=== PATIENT | male | born 1975 | race Caucasian/White ===

== ENCOUNTER 2018-05-29 15:43 | Observation (INO) | payer MEDICAID, SELFPAY ==
[2018-05-29] VITALS (12 sets, daily range): BP systolic 129–253; BP diastolic 62–175; PULSE 73–110; RESP 16–24; TEMP 36.6–37.4; O2SAT 96–99; BMI 37.0; BMI 38.2; BMI 38.3
--- NOTE | 2018-05-29 15:58 | EKG12_ITS ---
Test Reason : SYNCOPE Blood Pressure : / mmHG Vent. Rate : 108 BPM Atrial Rate : 108 BPM P-R Int : 164 ms QRS Dur : 100 ms QT Int : 362 ms P-R-T Axes : 042 048 144 degrees QTc Int : 485 ms Sinus tachycardia Left ventricular hypertrophy with repolarization abnormality Abnormal ECG Confirmed by GEORGES JAMESON, REBECCA ([id number]), editor magazine JOSE SULTANA ([id number]) on 05/31/2018 12:48:17 PM Referred By: AMARIS/ROLA Confirmed By:REBECCA SU MD
--- NOTE | 2018-05-29 15:58 | CT_ITS ---
STUDY: CT BRAIN WITHOUT CONTRAST REASON FOR EXAM: Male, 42 years old. Trauma. Head injury RADIATION DOSAGE (If Supplied By Facility): CTDIvol = ( 44.99 ) mGy, DLP = ( 880.47 ) mGycm TECHNIQUE: Transaxial CT imaging of the brain was performed without administration of intravenous contrast material. Individualized dose optimization techniques were used for this CT. COMPARISON: 09/28/2017 FINDINGS: Normal soft tissue structures. Normal calvarium. Normal size ventricles and extra-axial spaces for the patient's age. Normal white matter tracts of the cerebral hemispheres. Normal basal ganglia and thalami. Normal brainstem. Normal cerebellum. Linear area of well-defined hypodensity in the right parieto-occipital lobe compatible prior ischemia. There is no intracranial hemorrhage. There are no findings of an acute ischemic infarction. Normal visualized paranasal sinuses. CT/Brain/Head without Contrast IMPRESSION: No acute intracranial pathology. Remainder as above Electronically Signed: Yohan Washington DO at 19:37 EDT Tel , Service support ,
--- NOTE | 2018-05-29 16:09 | ED.VISSUMM ---
- ER Visit Summary Date of Service: 05/29/18 Chief Complaint: Syncopal episode History of Present Illness: The patient is a 42 M who has multiple medical problems presents after syncopal episode. He did have a prodrome. 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 This occurred while re-presents in a car. He states he got lightheaded and slightly sick to stomach and passed out. He states he has not been able take any of his blood pressure meds for the past 48 hours because of vomiting. He took his last Xarelto pill approximate 24 hours ago. He is on Xarelto for prior history of PE. Patient complains of bilateral headache. He complains of blurred vision without double vision or loss of vision. Denies ringing in his ears or decreased hearing. He denies any facial pain. He denies neck pain. He denies any chest pain. He complains of mid central back pain after fall. He has history of chronic low back pain. He denies any radicular pain. He denies any paresthesia, anesthesia motors upper or lower extremity presently the time of the fall. He does report nausea and vomiting. He denies hematemesis, melena hematochezia. Past medical history coronary disease status post bypass surgery, hypertension, pulmonary embolus and chronic low back pain. Physical Examination: Initial blood pressure 246/160. Repeat was 268/168. He is alert oriented ?3. Motor spiral 5. Sensations intact. DTRs symmetric no clonus or Babinski. Cranial 2 through 12 are intact. Head is atraumatic normocephalic. Pupils equal round reactive. Extra muscle intact. There is no CSF otorrhea Shalom. Trachea midline. There is no cervical spine tenderness. He has full active range of motion. Heart is regular without murmur, gallop or rub. He has a well-healed mid sternotomy scar noted. Lungs are clear to auscultation. Abdomen is soft nontender. There is no asymmetry, swelling, discoloration, leg vein distention, palpable cords or tenderness along the distribution of the deep venous system. Test Results: EKG reveals sinus tachycardia rate of 108 with LVH with repolarization abnormality. This is unchanged from September 28, 2017. CBC is remarkable for an MCV of 70 otherwise unremarkable. Emergency Department Course and Treatment: Patient was medicated with Zofran and Dilaudid for his nausea and back pain. Since he has taken a dose of Xarelto with the last 24 hours and has history of head trauma will obtain CT of the head. Because he complains of chest pain a chest x-ray was obtained which will evaluate his mediastinum. EKG and appropriate blood work. He is on multiple antihypertensive meds. These meds include clonidine and labetalol. He received a dose of clonidine and was started on labetalol drip. Patient has not gone for radiologic imaging i.e. chest x-ray and CT of the head. Blood results are still pending. Patient's history and physical findings were relayed to Dr. Crow who will make disposition once all diagnostic and laboratory tests have returned. Treatment Plan: Patient will require admission to the ICU. Disposition: Admit ICU Impression: 1. Hypertensive urgency versus emergency 2. Syncopal episode 3. Headache 4. Closed head injury 5. High risk medication, Xarelto 6. History of coronary disease 7. Chest pain unknown etiology This note was generated with [employer] dictation software. It may contain incorrect words, spelling, and punctuation that were not noted in review of the chart prior to signing ED Disposition - Plan for ED Patient: Chief Complaint: Syncope Referrals: Care Physician,No Primary [Primary Care Provider] -
[2018-05-29 16:25] LABS: Absolute Lymphocyte Count 1.49 X10^3/ul (0.83-4.51); Absolute Neutrophil Count 5.9 X10^3/uL (2.0-7.7); Basophil# 0.05 X10^3/uL; Basophil% 0.6 % (0-1); Eosinophil# 0.34 X10^3/uL; Hematocrit 45.5 % (40-54); Hemoglobin 13.7 g/dl (13.0-16.5); Lymphocyte # 1.49 X10^3/ul (4.0); Lymphocyte % 17.6 % (19-41); Mean Corp Hgb Conc 30.1 g/gl (32-36); Mean Corpuscular Hgb 21.1 pg (27.0-32.0); Mean Corpuscular Volume 70.1 fL (80-94); Mean Platelet Vol. 9.4 fl (6.2-12.0); Monocyte# 0.67 X10^3/uL; Monocyte% 7.9 % (0-10); Neutrophil # 5.91 X10^3/uL (2.7-7.7); Neutrophil % 69.7 % (47-70); Platelet Count 172 K/mm3 (150-450); RBC Distribution Width CV 17.2 % (11.6-14.6); Red Blood Count 6.49 M/mm3 (4.6-6.2); White Blood Count 8.5 K/mm3 (4.4-11.0)
[2018-05-29 16:27] LABS: Differential Indicated SCAN CRITERIA MET; POSITIVE COUNT NO; POSITIVE DIFFERENTIAL NO; POSITIVE MORPHOLOGY YES
[2018-05-29 16:33] LABS: International Normalized Ratio 0.9; Prothrombin Time (Protime)PT. 12.6 SECONDS (11.7-14.9)
[2018-05-29] MEDS: 0.9% Normal Saline 1,000 ML 150 ML IV (16:33)
[2018-05-29] MEDS: HYDROmorphone 1 MG/ML Syringe IV (16:33)
[2018-05-29 16:36] LABS: Anion Gap 11 (5-15); BUN 11 mg/dL (7-18); BUN/Creat Ratio 8.1 RATIO (10-20); Calcium,Total 9.2 mg/dL (8.5-10.1); Chloride 101 mmol/L (98-107); Creatinine, Serum 1.36 mg/dL (0.70-1.30); EST Glomerular Filtration Rate 62 mL/min (>60); Est Glom Filt Rate - Afr Amer 74 mL/min (>60); Estimated Creatinine Clearance 79.25 ml/min; Glucose 105 mg/dL (74-106); Potassium 3.3 mmol/L (3.5-5.1); Sodium Level 140 mmol/L (136-145)
[2018-05-29] MEDS: cloNIDine HCl 0.1 MG Tablet PO (16:45)
[2018-05-29] MEDS: Ondansetron 4 MG/2 ML Vial IV (16:46)
--- NOTE | 2018-05-29 16:55 | RAD_ITS ---
STUDY: X-RAY CHEST REASON FOR EXAM: Male, 42 years old. Shortness of breath and chest pain. TECHNIQUE: Single frontal view of the chest. COMPARISON: September 28, 2017 FINDINGS: There is stable low volume inspiration. There is no demonstrated pleural abnormality. There is cardiomegaly with sternotomy wires unchanged. Normal mediastinum and abram. Normal visualized pulmonary arteries. Normal visualized aortic arch and descending thoracic aorta. Normal visualized thoracic spine. Normal visualized ribs, clavicles, and shoulders. There is no demonstrated abnormality of the visualized soft tissue structures of the upper abdomen. RAD/Chest 1 View (Portable) IMPRESSION: Stable cardiomegaly with low volume inspiration. No new or acute pathology. Electronically Signed: Liam Lara MD at 17:31 EDT , Service support ,
--- NOTE | 2018-05-29 18:44 | ED.RN ---
PT WENT DOWN TO CT, PT STATED HE COULD NOT LIE FLAT FOR CT OF THE HEAD DUE TO HIS BACK PAIN, PT REFUSED CT AND WAS BROUGHT BACK TO ROOM
[2018-05-29] MEDS: HYDROmorphone 0.5 MG/0.5 ML SYRINGE IV ×2 (18:55→22:50)
--- NOTE | 2018-05-29 19:00 | PCM.HP.STD ---
Problem List (1) Syncope Status: Acute (2) Malignant hypertension Status: Acute (3) Back pain Status: Acute History of Present Illness Date of Admission: 05/29/18 Chief Complaint: syncope The patient is a 42 year old M who for the past few days his nausea and vomiting and not able to eat or drink much of anything. 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 Patient fell backwards hitting his head. Subsequent patient having some paresthesias of the top of the scalp. Denies any other paresthesias elsewhere. Does have significant back pain as well and did require several doses of hydromorphone in the emergency room. Patient was also in malignant hypertension with blood pressure as high as 253/147. Patient received 1 dose of clonidine and then was started on a labetalol drip. Patient states that he is feeling better at this time. Patient was unable to have a CAT scan of his head before my arrival because he was not medicated in the for his back pain. [] Past Medical History Medical History: Medical History (Last Updated 05/29/18 @ 19:05 by Yamil Friedman DO) CAD (coronary artery disease) I25.10 Chronic pain G89.29 Kidney stone N20.0 Pulmonary embolism I26.99 Stented coronary artery Z95.5 Tonsil stone J35.8 HTN (hypertension) I10 Allergies acetaminophen [From [place]] Allergy (Verified 05/29/18 15:46) Hives hydrocodone [From [place]] Allergy (Verified 05/29/18 15:46) Hives ibuprofen Allergy (Verified 05/29/18 15:46) Hives diphenhydramine [From Benadryl] Adverse Reaction (Verified 05/29/18 15:46) Upset Stomach fentanyl Adverse Reaction (Verified 05/29/18 15:46) Chest tightness hydralazine Adverse Reaction (Verified 05/29/18 15:46) Chest tightness ketorolac [From Toradol] Adverse Reaction (Verified 05/29/18 15:46) Upset Stomach lisinopril Adverse Reaction (Verified 05/29/18 15:46) Other metoclopramide [From Reglan] Adverse Reaction (Verified 05/29/18 16:05) Upset Stomach morphine Adverse Reaction (Verified 05/29/18 15:46) Other nitroglycerin [From Nitroglyn] Adverse Reaction (Verified 05/29/18 15:46) Other prochlorperazine [From Compazine] Adverse Reaction (Verified 05/29/18 15:46) Upset Stomach promethazine [From Phenergan] Adverse Reaction (Verified 05/29/18 15:46) Upset Stomach Home Medications: Ambulatory Orders Medication Instructions Recorded ALPRAZolam [Xanax] 1 mg PO TID 09/28/17 Aspirin [Aspirin, Baby] 81 mg PO DAILY@0800 09/28/17 Carvedilol [Coreg] 25 mg PO BID 09/28/17 HYDROmorphone tablet [Dilaudid] 2 mg PO Q4H PRN PRN 09/28/17 Labetalol [Trandate] 300 mg PO BID 09/28/17 Rivaroxaban [Xarelto] 20 mg PO DAILY 09/28/17 Albuterol Inhaler 1 puff INHALATION PRN 05/29/18 Catapres 0.5 mg PO DAILY 05/29/18 Surgical History: Surgical History (Last Updated 05/29/18 @ 19:04 by Yamil Friedman DO) Hx of CABG Z95.1 Smoking Status: Never smoker Tobacco Use: Non-smoker Alcohol: None Drugs: None - *Family History Maternal Family History: Family History (Last Updated 05/29/18 @ 19:04 by Yamil Friedman DO) Other Pulmonary embolism Review of Systems Constitutional: Reports: Anorexia. Denies: Chills, Fever Eyes: Reports: Blurred vision - when he turns his head. Denies: Cataracts, Double vision HEENT: Reports: - - tonsil stone. Denies: Head Aches, Sinus Congestion, Sinus Drainage Cardiovascular: Denies: Chest Pain, Chest Pressure, Edema Respiratory: Denies: Cough, Shortness of breath at rest, Sputum production Gastrointestinal: Reports: Abdominal Pain, Nausea, Vomiting Genitourinary: Reports: Dysuria. Denies: Frequency Musculoskeletal: Reports: Back Pain. Denies: Joint Pain, Joint Tenderness Skin: Denies: Dryness, Jaundice Neurological: Reports: Blurred vision, Tingling - scalp. Denies: Balance problems, Change in Speech, Slurred speech, Incoordination Psychiatric: Denies: Anxiety, Depression Hematologic/ Lymphatic: Reports: Hx of blood clot. Denies: Easy Bruising, Easy Bleeding Comment: All review of systems are negative except as mentioned in the history of present illness and the other review of systems. VTE Information - Inpt Only VTE Present on Admission: Yes Patient Problems: Active and Suspected Problems Syncope (Acute) Malignant hypertension (Acute) Back pain (Acute) - Physical Exam General: Alert, Cooperative, No apparent distress HEENT: Atraumatic, PERRLA, EOMI, Normocephalic Oral: Moist Mucosa, No Gingival or Mucosal Lesions/ Ulcerations Neck: No Nodes, Thyroid Normal Size and Texture Lungs: Clear to auscultation, Normal air movement, No rhonchi, No wheeze Cardiovascular: Regular rate, Regular Rhythm, Normal S1, Normal S2, No murmurs Abdomen: Bowel Sounds Present, Soft, Non Tender, Non-Distended, No Hepato-splenomegaly, Obese Extremities: No edema, No Calf Tenderness Skin: No rashes, No breakdown, - - No scalp laceration that I can appreciate Musculoskeletal: No Muscle Wasting, - - Patient with reproducible paraspinal tenderness throughout his back Lymphatic: No Cervical, Supraclavicular, or Inguinal Adenopathy, Cervical Adenopathy Neurological: Neuro grossly intact, Sensory exam intact to light touch and pain, Coordination normal Psych/Mental Status: Normal Affect, Appropriate Vital Signs Temp Pulse Resp BP Pulse Ox 37.2 C 77 20 H 152/128 H 98 05/29/18 15:50 05/29/18 18:45 05/29/18 18:45 05/29/18 18:45 05/29/18 18:45 Oxygen Delivery Method Room Air Weight: 123.831 kg Body Mass Index (BMI) 37.0 Laboratory Tests Past 24 Hrs 05/29/18 05/29/18 05/29/18 16:08 16:08 16:08 WBC 8.5 RBC 6.49 H Hgb 13.7 Hct 45.5 MCV 70.1 L MCH 21.1 L MCHC 30.1 L RDW 17.2 H RDW Differential 43.0 Plt Count 172 MPV 9.4 Immature Gran % (Auto) 0.200 Neut % (Auto) 69.7 Lymph % (Auto) 17.6 L [place] % (Auto) 7.9 Eos % (Auto) 4.0 Baso % (Auto) 0.6 Absolute Neuts (auto) 5.9 Absolute Lymphs (auto) 1.49 Total Counted Not Reportable Differential Comment PT 12.6 INR 0.9 APTT 28.0 Sodium 140 Potassium 3.3 L Chloride 101 Carbon Dioxide 28.0 Anion Gap 11 BUN 11 Creatinine 1.36 H Estim Creat Clear Calc 79.25 Est GFR (MDRD) Af Amer 74 Est GFR (MDRD) Non-Af 62 BUN/Creatinine Ratio 8.1 L Glucose 105 Calcium 9.2 Troponin I 0.017 Assessment/Plan All Active Problems Syncope (Acute) Malignant hypertension (Acute) Back pain (Acute) 1. Malignant hypertension Currently much improved but blood pressure still elevated. When I arrived in the room patient blood pressure cuff was grossly overinflated while he was taking his blood pressure. I remove the air from it and then his blood pressure was reading 144/90. So there may have been component of air with the blood pressure cuff being overinflated. I have discontinued the labetalol drip. Patient will continue with his home medications and I will have as needed labetalol for systolic blood pressure over 180 2. Syncope Feel that this is likely vasovagal given his intractable nausea vomiting and not eating. Patient showed me his urine sample and it appear to be very concentrated. A urinalysis was not sent from the ER but I have ordered that. Leg the patient had a vasovagal event due to his truncal nausea and vomiting and being dehydrated Patient will receive IV fluids Since patient hit his head patient will have a CAT scan in the emergency room. I have made the nurse aware in the emergency room as on the floor that she is not to go to the floor until his CAT scan is read as negative for bleed. Any bleed would preclude him from being admitted at this hospital and would require tertiary facility with neurosurgery involvement. I will order a CAT scan in the morning as well presuming CAT scan this evening will be negative just make sure he does not have any latent bleed with his head trauma, hypertension and Xarelto usage. 3. Back pain Neuro exam is nonfocal Reveals muscular in etiology and will start the patient on Flexeril as needed Patient has a high pain medication tolerance given his chronic Dilaudid usage. Patient will have as needed IV Dilaudid for breakthrough pain. 4. Venous thromboembolic disease Continue with Xarelto Stable 5. Coronary artery disease Stable 6. Disposition: If CAT scans are negative and patient is otherwise feeling better and is pressures better controlled patient should be able to be discharged on the 16. Patient will be brought in under observation status at this time. Code Visit OBSV E&M: 58334 Initial observation care L3
--- NOTE | 2018-05-29 19:11 | HP.PCM_ITS ---
Problem List (1) Syncope Status: Acute (2) Malignant hypertension Status: Acute (3) Back pain Status: Acute History of Present Illness Date of Admission: 05/29/18 Chief Complaint: syncope The patient is a 42 year old M who for the past few days his nausea and vomiting and not able to eat or drink much of anything. 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 Patient fell backwards hitting his head. Subsequent patient having some paresthesias of the top of the scalp. Denies any other paresthesias elsewhere. Does have significant back pain as well and did require several doses of hydromorphone in the emergency room. Patient was also in malignant hypertension with blood pressure as high as 253/147. Patient received 1 dose of clonidine and then was started on a labetalol drip. Patient states that he is feeling better at this time. Patient was unable to have a CAT scan of his head before my arrival because he was not medicated in the for his back pain. [] Past Medical History Medical History: Medical History (Last Updated 05/29/18 @ 19:05 by Yamil Friedman DO) CAD (coronary artery disease) I25.10 Chronic pain G89.29 Kidney stone N20.0 Pulmonary embolism I26.99 Stented coronary artery Z95.5 Tonsil stone J35.8 HTN (hypertension) I10 Allergies acetaminophen [From [place]] Allergy (Verified 05/29/18 15:46) Hives hydrocodone [From [place]] Allergy (Verified 05/29/18 15:46) Hives ibuprofen Allergy (Verified 05/29/18 15:46) Hives diphenhydramine [From Benadryl] Adverse Reaction (Verified 05/29/18 15:46) Upset Stomach fentanyl Adverse Reaction (Verified 05/29/18 15:46) Chest tightness hydralazine Adverse Reaction (Verified 05/29/18 15:46) Chest tightness ketorolac [From Toradol] Adverse Reaction (Verified 05/29/18 15:46) Upset Stomach lisinopril Adverse Reaction (Verified 05/29/18 15:46) Other metoclopramide [From Reglan] Adverse Reaction (Verified 05/29/18 16:05) Upset Stomach morphine Adverse Reaction (Verified 05/29/18 15:46) Other nitroglycerin [From Nitroglyn] Adverse Reaction (Verified 05/29/18 15:46) Other prochlorperazine [From Compazine] Adverse Reaction (Verified 05/29/18 15:46) Upset Stomach promethazine [From Phenergan] Adverse Reaction (Verified 05/29/18 15:46) Upset Stomach Home Medications: Ambulatory Orders Medication Instructions Recorded ALPRAZolam [Xanax] 1 mg PO TID 09/28/17 Aspirin [Aspirin, Baby] 81 mg PO DAILY@0800 09/28/17 Carvedilol [Coreg] 25 mg PO BID 09/28/17 HYDROmorphone tablet [Dilaudid] 2 mg PO Q4H PRN PRN 09/28/17 Labetalol [Trandate] 300 mg PO BID 09/28/17 Rivaroxaban [Xarelto] 20 mg PO DAILY 09/28/17 Albuterol Inhaler 1 puff INHALATION PRN 05/29/18 Catapres 0.5 mg PO DAILY 05/29/18 Surgical History: Surgical History (Last Updated 05/29/18 @ 19:04 by Yamil Friedman DO) Hx of CABG Z95.1 Smoking Status: Never smoker Tobacco Use: Non-smoker Alcohol: None Drugs: None - *Family History Maternal Family History: Family History (Last Updated 05/29/18 @ 19:04 by Yamil Friedman DO) Other Pulmonary embolism Review of Systems Constitutional: Reports: Anorexia. Denies: Chills, Fever Eyes: Reports: Blurred vision - when he turns his head. Denies: Cataracts, Double vision HEENT: Reports: - - tonsil stone. Denies: Head Aches, Sinus Congestion, Sinus Drainage Cardiovascular: Denies: Chest Pain, Chest Pressure, Edema Respiratory: Denies: Cough, Shortness of breath at rest, Sputum production Gastrointestinal: Reports: Abdominal Pain, Nausea, Vomiting Genitourinary: Reports: Dysuria. Denies: Frequency Musculoskeletal: Reports: Back Pain. Denies: Joint Pain, Joint Tenderness Skin: Denies: Dryness, Jaundice Neurological: Reports: Blurred vision, Tingling - scalp. Denies: Balance problems, Change in Speech, Slurred speech, Incoordination Psychiatric: Denies: Anxiety, Depression Hematologic/ Lymphatic: Reports: Hx of blood clot. Denies: Easy Bruising, Easy Bleeding Comment: All review of systems are negative except as mentioned in the history of present illness and the other review of systems. VTE Information - Inpt Only VTE Present on Admission: Yes Patient Problems: Active and Suspected Problems Syncope (Acute) Malignant hypertension (Acute) Back pain (Acute) - Physical Exam General: Alert, Cooperative, No apparent distress HEENT: Atraumatic, PERRLA, EOMI, Normocephalic Oral: Moist Mucosa, No Gingival or Mucosal Lesions/ Ulcerations Neck: No Nodes, Thyroid Normal Size and Texture Lungs: Clear to auscultation, Normal air movement, No rhonchi, No wheeze Cardiovascular: Regular rate, Regular Rhythm, Normal S1, Normal S2, No murmurs Abdomen: Bowel Sounds Present, Soft, Non Tender, Non-Distended, No Hepato- splenomegaly, Obese Extremities: No edema, No Calf Tenderness Skin: No rashes, No breakdown, - - No scalp laceration that I can appreciate Musculoskeletal: No Muscle Wasting, - - Patient with reproducible paraspinal tenderness throughout his back Lymphatic: No Cervical, Supraclavicular, or Inguinal Adenopathy, Cervical Adenopathy Neurological: Neuro grossly intact, Sensory exam intact to light touch and pain , Coordination normal Psych/Mental Status: Normal Affect, Appropriate Vital Signs Temp Pulse Resp BP Pulse Ox 37.2 C 77 20 H 152/128 H 98 05/29/18 15:50 05/29/18 18:45 05/29/18 18:45 05/29/18 18:45 05/29/18 18:45 Oxygen Delivery Method Room Air Weight: 123.831 kg Body Mass Index (BMI) 37.0 Laboratory Tests Past 24 Hrs 05/29/18 05/29/18 05/29/18 16:08 16:08 16:08 WBC 8.5 RBC 6.49 H Hgb 13.7 Hct 45.5 MCV 70.1 L MCH 21.1 L MCHC 30.1 L RDW 17.2 H RDW Differential 43.0 Plt Count 172 MPV 9.4 Immature Gran % (Auto) 0.200 Neut % (Auto) 69.7 Lymph % (Auto) 17.6 L [place] % (Auto) 7.9 Eos % (Auto) 4.0 Baso % (Auto) 0.6 Absolute Neuts (auto) 5.9 Absolute Lymphs (auto) 1.49 Total Counted Not Reportable Differential Comment PT 12.6 INR 0.9 APTT 28.0 Sodium 140 Potassium 3.3 L Chloride 101 Carbon Dioxide 28.0 Anion Gap 11 BUN 11 Creatinine 1.36 H Estim Creat Clear Calc 79.25 Est GFR (MDRD) Af Amer 74 Est GFR (MDRD) Non-Af 62 BUN/Creatinine Ratio 8.1 L Glucose 105 Calcium 9.2 Troponin I 0.017 Assessment/Plan All Active Problems Syncope (Acute) Malignant hypertension (Acute) Back pain (Acute) 1. Malignant hypertension * Currently much improved but blood pressure still elevated. * When I arrived in the room patient blood pressure cuff was grossly overinflated while he was taking his blood pressure. I remove the air from it and then his blood pressure was reading 144/90. So there may have been component of air with the blood pressure cuff being overinflated. * I have discontinued the labetalol drip. Patient will continue with his home medications and I will have as needed labetalol for systolic blood pressure over 180 2. Syncope * Feel that this is likely vasovagal given his intractable nausea vomiting and not eating. * Patient showed me his urine sample and it appear to be very concentrated. A urinalysis was not sent from the ER but I have ordered that. * Leg the patient had a vasovagal event due to his truncal nausea and vomiting and being dehydrated * Patient will receive IV fluids * Since patient hit his head patient will have a CAT scan in the emergency room. I have made the nurse aware in the emergency room as on the floor that she is not to go to the floor until his CAT scan is read as negative for bleed. Any bleed would preclude him from being admitted at this hospital and would require tertiary facility with neurosurgery involvement. * I will order a CAT scan in the morning as well presuming CAT scan this evening will be negative just make sure he does not have any latent bleed with his head trauma, hypertension and Xarelto usage. 3. Back pain * Neuro exam is nonfocal * Reveals muscular in etiology and will start the patient on Flexeril as needed * Patient has a high pain medication tolerance given his chronic Dilaudid usage. Patient will have as needed IV Dilaudid for breakthrough pain. 4. Venous thromboembolic disease * Continue with Xarelto * Stable 5. Coronary artery disease * Stable 6. Disposition: If CAT scans are negative and patient is otherwise feeling better and is pressures better controlled patient should be able to be discharged on the . Patient will be brought in under observation status at this time. Code Visit OBSV E&M: [id number] Initial observation care L3
[2018-05-29 19:12] LABS: Bacteria 0 SEEN /hpf (None Seen); Mucous, Urine 0 SEEN /hpf (<or=2+)
[2018-05-29 19:16] LABS: Glucose, Dipstick Normal (Normal); Ketone-Dipstick 5 mg/dl (Negative); Leukocyte Esterase-Dipstick 25 /ul (Negative); Nitrite-Dipstick Negative (Negative); Occult Blood-Urine 250 /ul (Negative); Protein-Dipstick 500 mg/dl (Negative); Urine Bilirubin Dipstick Negative (Negative); Urine Urobilinogen Normal (Normal)
[2018-05-29 19:17] LABS: Color, Urine Yellow (Yellow); Urine Clarity Sl Cldy (Clear)
[2018-05-29 19:23] LABS: Hyaline Cast 0-5 SEEN /lpf (0-5); Red Blood Cells-Urine > 100 SEEN /hpf (0-5); White Blood Cells 0-5 SEEN /hpf (0-5)
[2018-05-29 19:25] LABS: Squamous Epithelial Cells - UA 0-5 SEEN /hpf (0-5)
--- NOTE | 2018-05-29 19:35 | NURSING ---
Spoke with ED precision machining instructor, Evelyn at this time to confirm Pt is okay to come to PCU. Per Dr. Friedman, Pt's Brain CT needed to be read as negative prior to Pt's admission to PCU. Pt's Brain CT was negative.
[2018-05-29] MEDS: Labetalol 100 MG Tablet 300 MG PO (21:25)
[2018-05-29] MEDS: ALPRAZolam 0.5 MG Tablet 1 MG PO (21:25)
[2018-05-29] MEDS: Carvedilol 25 MG Tablet PO (21:25)
[2018-05-29] MEDS: 0.9% NaCl Peripheral Flush Adult/Peds IV (22:50)
[2018-05-30 00:04] VITALS: PULSE 79
[2018-05-30] MEDS: HYDROmorphone 0.5 MG/0.5 ML SYRINGE IV ×2 (02:51→06:52)
[2018-05-30] MEDS: 0.9% NaCl Peripheral Flush Adult/Peds IV ×2 (02:52→06:53)
[2018-05-30 03:10] VITALS: BP 154/91; PULSE 80; RESP 16; TEMP 36.9; O2SAT 96
--- NOTE | 2018-05-30 06:00 | CT_ITS ---
STUDY: CT BRAIN WITHOUT CONTRAST REASON FOR EXAM: Male, 42 years old. Worsening headaches RADIATION DOSAGE (If Supplied By Facility): CTDIvol = ( 44.99 ) mGy, DLP = ( 846.73 ) mGycm TECHNIQUE: Transaxial CT imaging of the brain was performed without administration of intravenous contrast material. Individualized dose optimization techniques were used for this CT. COMPARISON: September 28, 2017 and May 29, 2018 FINDINGS: There is a 4.0 x 0.8 cm area of low attenuation in the right frontoparietal region with an orientation along the central gyrus. It is probably artifact but was present in yesterday's examination as well. It however was not present in September 28, 2017 study. There is no acute hemorrhage or acute infarct and no intra or extra-axial tumor. The calvarium is intact. There are no scalp swelling CT/Brain/Head without Contrast IMPRESSION: An abnormal and persistent area of low attenuation located in the right hemisphere along the central sulcus. Was also present in yesterday's examination but not in the last study on September 28, 2017. May be artifactual.. No acute hemorrhage and no intra or extra-axial tumor. Electronically Signed: Rafael Carter, at 6:10 EDT Tel , Service support ,
[2018-05-30] MEDS: ALPRAZolam 0.5 MG Tablet 1 MG PO (06:04)
[2018-05-30 06:36] LABS: Anion Gap 12 (5-15); BUN 18 mg/dL (7-18); BUN/Creat Ratio 10.1 RATIO (10-20); Calcium,Total 8.5 mg/dL (8.5-10.1); Chloride 98 mmol/L (98-107); Creatinine, Serum 1.78 mg/dL (0.70-1.30); EST Glomerular Filtration Rate 45 mL/min (>60); Est Glom Filt Rate - Afr Amer 55 mL/min (>60); Estimated Creatinine Clearance 60.55 ml/min; Glucose 107 mg/dL (74-106); Potassium 3.4 mmol/L (3.5-5.1); Sodium Level 140 mmol/L (136-145)
[2018-05-30 07:32] VITALS: PULSE 78
[2018-05-30 07:47] VITALS: BP 169/92; PULSE 89; RESP 18; TEMP 36.3; O2SAT 100
[2018-05-30] MEDS: Labetalol 100 MG Tablet 300 MG PO (07:55)
[2018-05-30] MEDS: Carvedilol 25 MG Tablet PO (07:55)
[2018-05-30] MEDS: Aspirin 81 MG TAB.CHEW PO (07:56)
[2018-05-30] MEDS: Rivaroxaban 20 MG Tablet PO (07:56)
--- NOTE | 2018-05-30 08:03 | NURSING ---
Patient states child fell down basement stairs has to leave ama - notifoed md Dr. Delgado states give po kcl drink plenty fluids/ f/u pcp in 2-3 days and will need repeat blood work
--- NOTE | 2018-05-31 06:26 | PCM.DC.SUM ---
Discharge Date and Diagnosis Date of Admission: 05/29/18 Date of Discharge: 05/31/18 - Primary Discharge Diagnosis syncope back pain - Secondary Discharge Diagnosis CAD Chronic pain syndrome nephrolithiasis hx of PE S/P PTCA/MARYJANE HTN Hospital Course and Treatment Imaging Results: Clinical Impression(s) from Imaging Studies Brain CT 05/29/18 15:58 IMPRESSION: No acute intracranial pathology. Remainder as above Electronically Signed: Yohan Washington DO at 19:37 EDT Tel , Service support , Chest X-Ray 05/29/18 16:55 IMPRESSION: Stable cardiomegaly with low volume inspiration. No new or acute pathology. Electronically Signed: Liam Lara MD at 17:31 EDT , Service support , Brain CT 05/30/18 06:00 IMPRESSION: An abnormal and persistent area of low attenuation located in the right hemisphere along the central sulcus. Was also present in yesterday's examination but not in the last study on September 28, 2017. May be artifactual.. No acute hemorrhage and no intra or extra-axial tumor. Electronically Signed: Rafael Carter, at 6:10 EDT Tel , Service support , none Operations: None Procedures: None Summary of Care Provided: The patient is a 42 year old M with a past medical history of coronary artery disease, chronic pain syndrome, nephrolithiasis, pulmonary embolism, stented coronary artery and hypertension who presented to the emergency room at [facility] on 05/29/2018 after a syncopal episode. He was at work when he passed out and he admitted to not eating or drinking much that day. He fell backwards and hit his head. Subsequently he complained of paresthesias of the top of the scalp but no paresthesias anywhere else. He has chronic back pain which was exacerbated with the fall. Initial blood pressure in the emergency room was 253/147 however the cuff was improperly inflated and a repeat blood pressure was only mildly elevated. CT scan of the brain showed no acute intracranial pathology. There was a linear area of well-defined hypodensity in the right parieto-occipital lobe compatible with prior episode of ischemia. Chest x-ray revealed a poor inspiratory effort but no infiltrates, pleural effusions or pulmonary vascular congestion. CBC was remarkable for a low MCV at 70.1 however the hemoglobin was 13.7. Potassium was low at 3.3 and the creatinine was 1.36. He was admitted to a monitored bed on PCU. Orthostatic BP's were obtained following hydration in the ED and they were negative for orthostatic hypotension. Lab was repeated on 05/30/2018 and his creatinine had increased from 1.36-1.78. Prior to my seeing the patient he left AMA because his son was taken to an ED after a fall at home. He was instructed by nursing to follow up with his PCP for abnormal lab. He should also have a stress test to rule out ischemic/dysrhythmia as etiology of the syncopal episode. Home Medications: Medications to take at Discharge ALPRAZolam [Xanax] 1 mg PO TID 09/28/17 Aspirin [Aspirin, Baby] 81 mg PO DAILY@0800 09/28/17 Carvedilol [Coreg] 25 mg PO BID 09/28/17 HYDROmorphone tablet [Dilaudid] 2 mg PO Q4H PRN PRN 09/28/17 Labetalol [Trandate] 300 mg PO BID 09/28/17 Rivaroxaban [Xarelto] 20 mg PO DAILY 09/28/17 Albuterol Inhaler 1 puff INHALATION PRN 05/29/18 Clonidine HCl [Catapres] 0.1 mg PO DAILY 05/29/18 Ipratropium/Albuterol Sulfate [Duoneb] 3 ml INHALATION Q6HWA.RT PRN 05/29/18 Primary Care Physician: Care Physician,No Primary [Primary Care Provider] - Disposition: Against Medical Advice Minutes spent on discharge:: 25 Patient Condition:: Guarded Medical Necessity - Tobacco Use Smoking Status: Never smoker Tobacco Use: Non-smoker Meaningful Use Info Meaningful Use Diagnoses (Choose all that apply): None applicable Code Visit Inpatient E&M: 10614 Disch Hosp
--- NOTE | 2018-05-31 06:36 | DS.PCM_ITS ---
Discharge Date and Diagnosis Date of Admission: 05/29/18 Date of Discharge: 05/31/18 - Primary Discharge Diagnosis syncope back pain - Secondary Discharge Diagnosis CAD Chronic pain syndrome nephrolithiasis hx of PE S/P PTCA/MARYJANE HTN Hospital Course and Treatment Imaging Results: Clinical Impression(s) from Imaging Studies Brain CT 05/29/18 15:58 IMPRESSION: No acute intracranial pathology. Remainder as above Electronically Signed: Yohan Washington DO at 19:37 EDT Tel , Service support , Chest X-Ray 05/29/18 16:55 IMPRESSION: Stable cardiomegaly with low volume inspiration. No new or acute pathology. Electronically Signed: Liam Lara MD at 17:31 EDT , Service support , Brain CT 05/30/18 06:00 IMPRESSION: An abnormal and persistent area of low attenuation located in the right hemisphere along the central sulcus. Was also present in yesterday's examination but not in the last study on September 28, 2017. May be artifactual.. No acute hemorrhage and no intra or extra-axial tumor. Electronically Signed: Rafael Carter, at 6:10 EDT Tel , Service support , none Operations: None Procedures: None Summary of Care Provided: The patient is a 42 year old M with a past medical history of coronary artery disease, chronic pain syndrome, nephrolithiasis, pulmonary embolism, stented coronary artery and hypertension who presented to the emergency room at [facility] on 05/29/2018 after a syncopal episode. He was at work when he passed out and he admitted to not eating or drinking much that day. He fell backwards and hit his head. Subsequently he complained of paresthesias of the top of the scalp but no paresthesias anywhere else. He has chronic back pain which was exacerbated with the fall. Initial blood pressure in the emergency room was 253/147 however the cuff was improperly inflated and a repeat blood pressure was only mildly elevated. CT scan of the brain showed no acute intracranial pathology. There was a linear area of well-defined hypodensity in the right parieto-occipital lobe compatible with prior episode of ischemia. Chest x-ray revealed a poor inspiratory effort but no infiltrates, pleural effusions or pulmonary vascular congestion. CBC was remarkable for a low MCV at 70.1 however the hemoglobin was 13.7. Potassium was low at 3.3 and the creatinine was 1.36. He was admitted to a monitored bed on PCU. Orthostatic BP' s were obtained following hydration in the ED and they were negative for orthostatic hypotension. Lab was repeated on 05/30/2018 and his creatinine had increased from 1.36-1.78. Prior to my seeing the patient he left AMA because his son was taken to an ED after a fall at home. He was instructed by nursing to follow up with his PCP for abnormal lab. He should also have a stress test to rule out ischemic/dysrhythmia as etiology of the syncopal episode. Home Medications: Medications to take at Discharge ALPRAZolam [Xanax] 1 mg PO TID 09/28/17 Aspirin [Aspirin, Baby] 81 mg PO DAILY@0800 09/28/17 Carvedilol [Coreg] 25 mg PO BID 09/28/17 HYDROmorphone tablet [Dilaudid] 2 mg PO Q4H PRN PRN 09/28/17 Labetalol [Trandate] 300 mg PO BID 09/28/17 Rivaroxaban [Xarelto] 20 mg PO DAILY 09/28/17 Albuterol Inhaler 1 puff INHALATION PRN 05/29/18 Clonidine HCl [Catapres] 0.1 mg PO DAILY 05/29/18 Ipratropium/Albuterol Sulfate [Duoneb] 3 ml INHALATION Q6HWA.RT PRN 05/29/18 Primary Care Physician: Care Physician,No Primary [Primary Care Provider] - Disposition: Against Medical Advice Minutes spent on discharge:: 25 Patient Condition:: Guarded Medical Necessity - Tobacco Use Smoking Status: Never smoker Tobacco Use: Non-smoker Meaningful Use Info Meaningful Use Diagnoses (Choose all that apply): None applicable Code Visit Inpatient E&M: 22165 Disch Hosp
== END 2018-05-30 08:11 | disposition left against medical advice (07) ==
LOC: ED 17:06 → PCU 19:45
PROVIDERS: Emergency Medicine; Emergency Provider Emergency Medicine; Visit Provider Internal Medicine
DX: I16.0 Hypertensive urgency (principal); R55 Syncope and collapse; R51 Headache; R00.0 Tachycardia, unspecified; Z86.711 Personal history of pulmonary embolism; Z79.01 Long term (current) use of anticoagulants; H53.8 Other visual disturbances; Z79.899 Other long term (current) drug therapy; Z79.82 Long term (current) use of aspirin; G89.29 Other chronic pain; M54.5 Low back pain; I25.10 Atherosclerotic heart disease of native coronary artery without angina pectoris; Z95.1 Presence of aortocoronary bypass graft; I10 Essential (primary) hypertension
CPT/HCPCS: 36415; 70450; 71045; 80048; 81001; 84484; 85025; 85610; 85730; 93005; 96365; 96366; 96375; 96376; 99218; 99285; J7030; A4216; G0378; J2405

== ENCOUNTER 2018-07-01 18:58 | Observation (INO) | payer MEDICAID, SELFPAY ==
[2018-07-01] VITALS (10 sets, daily range): BP systolic 157–252; BP diastolic 107–161; PULSE 92–119; RESP 15–18; TEMP 36.7–37.3; O2SAT 95–99; BMI 37.0; BMI 38.5
--- NOTE | 2018-07-01 19:14 | CT_ITS ---
CT/Brain/Head without Contrast IMPRESSION: Stable examination demonstrating no acute intracranial process. Electronically Signed: Amelie Macedo MD at 21:06 EDT Tel , Service support ,
[2018-07-01] MEDS: 0.9% Normal Saline 1,000 ML 1000 ML IV (19:38)
[2018-07-01] MEDS: HYDROmorphone 1 MG/ML Syringe IV ×3 (19:39→22:02)
[2018-07-01] MEDS: Ondansetron 4 MG/2 ML Vial IV (19:39)
[2018-07-01] MEDS: cloNIDine HCl 0.2 MG Tablet PO (20:10)
[2018-07-01 20:32] LABS: Absolute Lymphocyte Count 1.44 X10^3/ul (0.83-4.51); Absolute Neutrophil Count 6.8 X10^3/uL (2.0-7.7); Basophil# 0.03 X10^3/uL; Basophil% 0.3 % (0-1); Eosinophil# 0.15 X10^3/uL; Eosinophils% 1.7 % (0-5); Hematocrit 43.9 % (40-54); Hemoglobin 13.6 g/dl (13.0-16.5); Lymphocyte # 1.44 X10^3/ul (4.0); Lymphocyte % 16.2 % (19-41); Mean Corpuscular Hgb 21.8 pg (27.0-32.0); Mean Corpuscular Volume 70.5 fL (80-94); Monocyte# 0.46 X10^3/uL; Monocyte% 5.2 % (0-10); Neutrophil # 6.82 X10^3/uL (2.7-7.7); Neutrophil % 76.5 % (47-70); Platelet Count 132 K/mm3 (150-450); RBC Distribution Width CV 17.3 % (11.6-14.6); RBC Distribution Width SD 43.7 fl (35.1-43.9); Red Blood Count 6.23 M/mm3 (4.6-6.2); White Blood Count 8.9 K/mm3 (4.4-11.0)
[2018-07-01 20:34] LABS: Differential Indicated SCAN CRITERIA MET; POSITIVE COUNT NO; POSITIVE DIFFERENTIAL NO; POSITIVE MORPHOLOGY YES
[2018-07-01 20:51] LABS: AST(SGOT) 39 U/L (15-37); Alanine Aminotransfer ALT/SGPT 55 U/L (16-61); Albumin, Serum 3.8 g/dL (3.2-5.0); Alkaline Phosphatase 97 U/L (45-117); Anion Gap 11 (5-15); BUN 17 mg/dL (7-18); Calcium,Total 8.5 mg/dL (8.5-10.1); Chloride 97 mmol/L (98-107); Creatinine, Serum 1.42 mg/dL (0.70-1.30); EST Glomerular Filtration Rate 59 mL/min (>60); Est Glom Filt Rate - Afr Amer 71 mL/min (>60); Glucose 170 mg/dL (74-106); Potassium 2.9 mmol/L (3.5-5.1); Protein, Total 7.8 g/dL (6.4-8.2); Sodium Level 136 mmol/L (136-145)
--- NOTE | 2018-07-01 21:29 | ED.VISSUMM ---
- ER Visit Summary Date of Service: 07/01/18 Chief Complaint: Nausea vomiting, head injury History of Present Illness: The patient is a 42 M who has a history of hypertension's and tachycardia fell off the back of his truck bed about 2 days ago, he did sustain a back injury. He has had nausea and vomiting since then has been unable to keep his medications in his stomach due to vomiting so he is not taking his labetalol, carvedilol, clonidine, hydromorphone, alprazolam for the past 2-3 days. He arrives in quite a bit of distress. No fever or chills she did have some chest discomfort and palpitations. Physical Examination: Patient is somewhat diaphoretic and appears in some distress Dry mucous membranes, no obvious facial deformity No C-spine tenderness supple neck. He does have bilateral paraspinal tenderness. Regular rate and rhythm without any obvious murmurs Clear lungs bilaterally speaking in full sentences without any obvious respiratory distress Abdomen soft and nontender no guarding or rebound Moves all extremities without any difficulty or pain. He has LS-spine tenderness to palpation Skin does not show any obvious rashes or lesions, no trauma. Alert oriented ?3 with no gross focal deficit Emergency Department Course and Treatment: Patient has an unremarkable radiographic workup, CT head, C-spine, chest x-ray, LS-spine x-ray. He was given his medications, labetalol, clonidine, Dilaudid. He did improve however his troponin is intermediate, this is likely heart strain from his LVH, regardless I will admit him to the hospital to make sure the troponin improves. Disposition: [Admit in guarded condition] Impression: Concussion without loss of consciousness Lumbar contusion Hypertension Intermediate troponin This note was generated with [employer] dictation software. It may contain incorrect words, spelling, and punctuation that were not noted in review of the chart prior to signing ED Disposition - Plan for ED Patient: Chief Complaint: Head Injury Referrals: Care Physician,No Primary [Primary Care Provider] -
[2018-07-01] MEDS: LORazepam 2 MG/ML Syringe 1 MG IV (22:01)
--- NOTE | 2018-07-01 22:04 | NURSING ---
bhaskar Ng rn aware ok to send pt to the floor.
--- NOTE | 2018-07-01 22:29 | PCM.HP.STD ---
Problem List (1) Chest pain Status: Acute (2) N&V (nausea and vomiting) Status: Acute (3) Pulmonary embolism Status: Acute (4) HTN (hypertension) Status: Chronic (5) Malignant hypertension Status: Acute History of Present Illness Date of Admission: 07/01/18 Chief Complaint: N/v The patient is a 42 year old male w/ h/o HTN, PE, chronic pain, CAD s/p stent, tonsil stone, and kidney stone admitted for n/v. 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 He hit the left side of his head. No laceration or lost of conscious. At the time of injury, he had severe headache but it would improve. It is intermittent. HTN made it worse. He also has been n/v. He was unable to keep any PO down. Nothing made his n/v better or worse. N/v is not associated with any other symptoms. He was unable to keep his meds down. He had chest pain associated with exertion. Chest pain improved with rest. He had substernal chest discomfort associated with SOB. SOB and discomfort would last for minutes. No palpitation or diaphoresis. Past Medical History Past Medical History (Chronic Problems): Chronic Problems (Last Reviewed 07/01/18 @ 22:59 by Wilmer Langley MD) HTN (hypertension) (Chronic) Medical History: Medical History (Last Reviewed 07/01/18 @ 22:59 by Wilmer Langley MD) CAD (coronary artery disease) I25.10 Chronic pain G89.29 Kidney stone N20.0 Pulmonary embolism I26.99 Stented coronary artery Z95.5 Tonsil stone J35.8 HTN (hypertension) I10 Allergies acetaminophen [From [place]] Allergy (Verified 07/01/18 18:59) Hives hydrocodone [From [place]] Allergy (Verified 07/01/18 18:59) Hives ibuprofen Allergy (Verified 07/01/18 18:59) Hives diphenhydramine [From Benadryl] Adverse Reaction (Verified 18 18:59) Upset Stomach fentanyl Adverse Reaction (Verified 18 18:59) Chest tightness hydralazine Adverse Reaction (Verified 07/01/18 18:59) Chest tightness ketorolac [From Toradol] Adverse Reaction (Verified 07/01/18 18:59) Upset Stomach lisinopril Adverse Reaction (Verified 07/01/18 18:59) Other metoclopramide [From Reglan] Adverse Reaction (Verified 07/01/18 18:59) Upset Stomach morphine Adverse Reaction (Verified 07/01/18 18:59) Other nitroglycerin [From Nitroglyn] Adverse Reaction (Verified 07/01/18 18:59) Other prochlorperazine [From Compazine] Adverse Reaction (Verified 07/01/18 18:59) Upset Stomach promethazine [From Phenergan] Adverse Reaction (Verified 07/01/18 18:59) Upset Stomach Home Medications: Ambulatory Orders Medication Instructions Recorded ALPRAZolam [Xanax] 1 mg PO TID 09/28/17 Aspirin [Aspirin, Baby] 81 mg PO DAILY@0800 09/28/17 Carvedilol [Coreg] 25 mg PO BID 09/28/17 HYDROmorphone tablet [Dilaudid] 2 mg PO Q4H PRN PRN 09/28/17 Labetalol [Trandate] 300 mg PO BID 09/28/17 Rivaroxaban [Xarelto] 20 mg PO DAILY 09/28/17 Albuterol Inhaler 1 puff INHALATION PRN 05/29/18 Clonidine HCl [Catapres] 0.1 mg PO DAILY 05/29/18 Ipratropium/Albuterol Sulfate 3 ml INHALATION Q6HWA.RT PRN 05/29/18 [Duoneb] Surgical History: Surgical History (Last Reviewed 07/01/18 @ 22:59 by Wilmer Langley MD) Hx of CABG Z95.1 Surgical History: - - CAD s/p stent Psychiatric History: No pertinent psych hx Lives: Friends Smoking Status: Never smoker Tobacco Use: - Alcohol: None Drugs: None - *Family History Maternal Family History: Family History (Last Updated 05/29/18 @ 19:04 by Yamil Friedman DO) Other Pulmonary embolism History Items: No pertinent history Review of Systems Constitutional: Denies: Chills, Fever, Weight Change HEENT: Denies: Head Aches, Sinus Congestion, Sinus Drainage Cardiovascular: Denies: Chest Pain, Palpitations Respiratory: Denies: Cough, Shortness of breath at rest, Sputum production Gastrointestinal: Reports: Nausea, Vomiting. Denies: Abdominal Pain Genitourinary: Denies: Dysuria Musculoskeletal: Denies: Joint Pain, Joint Tenderness Skin: Denies: Rash, Wounds Neurological: Denies: Numbness, Tingling, Focal weakness Psychiatric: Denies: Anxiety, Depression, Homicidal Ideations, Suicidal Ideations Hematologic/ Lymphatic: Denies: Easy Bruising, Easy Bleeding VTE Information - Inpt Only VTE Present on Admission: No VTE Mechan Device Prophylaxis: SCD's VTE Pharm Prophylaxis ordered?: Yes Patient Problems: Active and Suspected Problems (Last Reviewed 07/01/18 @ 22:59 by Wilmer Langley MD) Chest pain (Acute) N&V (nausea and vomiting) (Acute) Pulmonary embolism (Acute) - Physical Exam General: Alert, Oriented x3, Cooperative HEENT: Atraumatic, PERRLA, EOMI, Normocephalic Neck: Supple, No JVD, Negative Carotid Bruits Lungs: Clear to auscultation, Normal air movement Cardiovascular: Regular rate, No murmurs, Tachycardic Abdomen: Bowel Sounds Present, Soft, Non Tender Extremities: No edema, Capillary Refill Less than 3 Seconds Skin: No rashes, No breakdown Musculoskeletal: No Tenderness to Palpation of Joints or Extremities Neurological: Cranial nerves II-XII grossly intact Psych/Mental Status: Normal Affect, Appropriate Vital Signs Temp Pulse Resp BP Pulse Ox 98.0 F 95 17 197/158 H 99 07/01/18 18:59 07/01/18 22:08 07/01/18 22:08 07/01/18 22:08 07/01/18 22:08 Oxygen Delivery Method Room Air Weight: 128.866 kg Body Mass Index (BMI) 38.5 Laboratory Tests Past 24 Hrs 07/01/18 07/01/18 19:40 19:40 WBC 8.9 RBC 6.23 H Hgb 13.6 Hct 43.9 MCV 70.5 L MCH 21.8 L MCHC 31.0 L RDW 17.3 H RDW Differential 43.7 Plt Count 132 L MPV TNP Immature Gran % (Auto) 0.100 Neut % (Auto) 76.5 H Lymph % (Auto) 16.2 L [place] % (Auto) 5.2 Eos % (Auto) 1.7 Baso % (Auto) 0.3 Absolute Neuts (auto) 6.8 Absolute Lymphs (auto) 1.44 Total Counted Not Reportable Sodium 136 Potassium 2.9 L Chloride 97 L Carbon Dioxide 28.0 Anion Gap 11 BUN 17 Creatinine 1.42 H Estim Creat Clear Calc 75.90 Est GFR (MDRD) Af Amer 71 Est GFR (MDRD) Non-Af 59 L BUN/Creatinine Ratio 12.0 Glucose 170 H Calcium 8.5 Total Bilirubin 0.50 AST 39 H ALT 55 Alkaline Phosphatase 97 Troponin I 0.111 H Total Protein 7.8 Albumin 3.8 Globulin 4.0 Albumin/Globulin Ratio 1.0 Assessment/Plan All Active Problems (Last Reviewed 07/01/18 @ 22:59 by Wilmer Langley MD) Syncope (Acute) Malignant hypertension (Acute) Back pain (Acute) Chest pain (Acute) N&V (nausea and vomiting) (Acute) Pulmonary embolism (Acute) 42 year old male w/ h/o HTN, PE, chronic pain, CAD s/p stent, tonsil stone, and kidney stone admitted for n/v. 1) Chest pain: Heart score 5 Elevated trop likely type II secondary to HTN urgency and strain from LVH. Trop 0.11 EKG is nondiagnostic. Chest xray unremarkable. Serial trop, fasting lipid panel pending. ECHO in AM. Stress test in AM. 2) N/V: Probably concussion w/o loss of consciousness. CT brain disclosed no acute finding. C-spine and L-spine disclosed multilevel degenerative changes and no acute finding. Supportive care. IVF hydration. Zofran PRN. If persist, will consider MRI. Monitor. 3) Hypokalemia: Likely secondary n/v. Replaced. Serial labs. 4) HTN: Resume home meds. Allergy to hydralazine noted. Will control with IV labetalol and if failure, will start gtt. Monitor. 5) PE: Resume xarelto. No contraindication for anticoagulation at this time.
[2018-07-01] MEDS: Potassium Chloride 40 MEQ in 0.9% Normal Saline 1,000 ML 150 MEQ IV (23:54)
[2018-07-01] MEDS: ALPRAZolam 0.5 MG Tablet 1 MG PO (23:57)
--- NOTE | 2018-07-02 01:25 | NURSING ---
pt refusing to have bed alarm on
[2018-07-02 01:46] LABS: Amphetamine Urine VISTA NEGATIVE (<1000 ng/mL); Barbiturate Urine VISTA NEGATIVE (< 200 ng/mL); Benzodiazepine Urine VISTA NEGATIVE (< 200 ng/mL); Cocaine Urine VISTA NEGATIVE (< 300 ng/mL); Ecstacy Urine VISTA NEGATIVE (< 500 ng/mL); Methadone Urine VISTA NEGATIVE (< 300 ng/mL); PCP Urine VISTA NEGATIVE (< 25 ng/mL); THC Urine VISTA NEGATIVE (< 50 ng/mL); Vista UDS pH Range 5
[2018-07-02 02:18] VITALS: BP 172/111; PULSE 91; RESP 16; TEMP 37.2; O2SAT 98
[2018-07-02] MEDS: HYDROmorphone 1 MG/ML Syringe IV (02:23)
[2018-07-02] MEDS: 0.9% NaCl Peripheral Flush Adult/Peds IV (02:24)
--- NOTE | 2018-07-02 03:20 | PCM.DC.SUM ---
Discharge Date and Diagnosis - Problem List Patient Problems: Active and Suspected Problems (Last Reviewed 07/01/18 @ 22:59 by Wilmer Langley MD) Chest pain (Acute) N&V (nausea and vomiting) (Acute) Pulmonary embolism (Acute) Date of Admission: 07/01/18 Date of Discharge: 07/02/18 - Primary Discharge Diagnosis Active and Suspected Problems (Last Reviewed 07/01/18 @ 22:59 by Wilmer Langley MD) Chest pain (Acute) N&V (nausea and vomiting) (Acute) Pulmonary embolism (Acute) - Secondary Discharge Diagnosis Chronic Problems (Last Reviewed 07/01/18 @ 22:59 by Wilmer Langley MD) HTN (hypertension) (Chronic) Hospital Course and Treatment Imaging Results: 07/02/18 05:55 Echo Complete [ECHO] AM (NON MEDS) Operations: None Summary of Care Provided: The patient is a 42 year old male w/ h/o PE, HTN and chest pain left AMA. During his brief stay, he claimed that he could not tolerate PO blood pressure meds because of n/v. However, he tolerated ativan PO. He also requested dilaudid IV. After receiving these meds, he requested to leave AMA because of his niece needing him at another hospital. He claims to not be able to tolerate any PO intake but yet, he still wanted to leave. His trops were trending down. He was advised to stay but signed AMA and left. He was told leaving AMA could result in worsening of his condition and even . Home Medications: Medications to take at Discharge ALPRAZolam [Xanax] 1 mg PO TID 09/28/17 Aspirin [Aspirin, Baby] 81 mg PO DAILY@0800 09/28/17 Carvedilol [Coreg] 25 mg PO BID 09/28/17 HYDROmorphone tablet [Dilaudid] 2 mg PO Q4H PRN PRN 09/28/17 Labetalol [Trandate] 300 mg PO BID 09/28/17 Rivaroxaban [Xarelto] 20 mg PO DAILY 09/28/17 Albuterol Inhaler 1 puff INHALATION Q4H PRN PRN 05/29/18 Clonidine HCl [Catapres] 0.1 mg PO DAILY 05/29/18 Ipratropium/Albuterol Sulfate [Duoneb] 3 ml INHALATION Q6HWA.RT PRN 05/29/18 Primary Care Physician: Care Physician,No Primary [Primary Care Provider] - Medical Necessity - Tobacco Use Smoking Status: Never smoker Tobacco Use: - Meaningful Use Info Meaningful Use Diagnoses (Choose all that apply): None applicable
--- NOTE | 2018-07-02 03:35 | NURSING ---
pt signing out AMA. Discussed the risks of signing out AMA and pt stated that he understood. AMA paper signed, witnessed by Nelsy PASCAL and chelsea RN. Physician notified.
== END 2018-07-02 03:30 | disposition left against medical advice (07) ==
LOC: ED 20:00 → PCU 22:06
PROVIDERS: Admitting Provider Internal Medicine; Emergency Provider Emergency Medicine; Visit Provider Internal Medicine
DX: R07.89 Other chest pain (principal); R11.2 Nausea with vomiting, unspecified; I26.99 Other pulmonary embolism without acute cor pulmonale; I10 Essential (primary) hypertension; I25.10 Atherosclerotic heart disease of native coronary artery without angina pectoris; G89.29 Other chronic pain; E87.6 Hypokalemia; Z79.899 Other long term (current) drug therapy; Z79.01 Long term (current) use of anticoagulants; Z79.82 Long term (current) use of aspirin; Z95.5 Presence of coronary angioplasty implant and graft
CPT/HCPCS: 36415; 70450; 71046; 72100; 72125; 80053; 80307; 84484; 85025; 93005; 96374; 96375; 96376; 99218; 99285; J7030; J7040; A4216; G0378; J2405